=== PATIENT | female | born 1970 | race Caucasian/White ===

== ENCOUNTER 2018-06-29 20:17 | Inpatient (IN) | payer OTHER ==
[~2018-06-29] VITALS: Ht 160 cm; Wt 73.2 kg
[~2018-06-29 20:17] MED LIST: ASPI81TA4 PO; CALC500C PO; DEPA500T2 PO; MOTRIN PO; NO HOME MEDS; PERC5TAB12 PO; PRENTAB7 PO; REGL10TA6 PO; TRAZ1TAB36 PO
[2018-06-29] MEDS ORDERED: NS 1,000 ML IV ONE ×2 (20:45→22:15)
[2018-06-29] MEDS ORDERED: SUCRALFATE 1 GM TAB PO ONE (20:45)
[2018-06-29] MEDS ORDERED: ONDANSETRON 4MG/2ML VIAL (J2405) IV ONE (20:45)
[2018-06-29] MEDS: MORPHINE 2 MG/ML 1ML SYRINGE (J2270) IV PRN ×2 (20:57→22:05)
[2018-06-29 21:21] LABS: BASO # 0.1 10^3/uL (0.0-0.2); BASO % 0.5 % (0.0-1.0); EOS # 0.3 10^3/uL (0.0-0.50); EOS % 1.9 % (0.0-3.0); HEMATOCRIT 38.1 % (36.0-47.0); HEMOGLOBIN 12.5 g/dl (12.0-15.5); LYMPH # 2.4 10^3/uL (1.5-4.5); LYMPH % 15.4 % (24.0-44.0); MEAN CORPUSCULAR HEMOGLOBIN 29.5 pg (27.0-33.0); MEAN CORPUSCULAR HGB CONC 32.8 g/dl (32.0-36.5); MEAN CORPUSCULAR VOLUME 89.9 fl (80.0-96.0); MONO # 1.1 10^3/uL (0.0-0.8); MONO % 6.7 % (0.0-5.0); NEUTROPHILS # 11.8 10^3/uL (1.8-7.7); NEUTROPHILS % 75.1 % (36.0-66.0); PLATELET COUNT, AUTOMATED 285 10^3/uL (150-450); RED BLOOD COUNT 4.24 10^6/uL (4.00-5.40); WHITE BLOOD COUNT 15.7 10^3/uL (4.0-10.0)
[2018-06-29 21:34] LABS: HCG, SERUM QUALITATIVE NEGATIVE (NEGATIVE)
[2018-06-29 21:44] LABS: INR 1.01; PROTHROMBIN TIME 13.4 SECONDS (12.1-14.4)
[2018-06-29 21:45] LABS: PARTIAL THROMBOPLASTIN TIME 33.4 SECONDS (25.4-37.6)
[2018-06-29 21:57] LABS: ALBUMIN 3.4 GM/DL (3.2-5.2); ALT/SGPT 35 U/L (12-78); AMYLASE 2114 U/L (25-115); BILIRUBIN,DIRECT 0.2 MG/DL (0.0-0.2); BILIRUBIN,TOTAL 0.4 MG/DL (0.2-1.0); BLOOD UREA NITROGEN 8 MG/DL (7-18); CALCIUM LEVEL 8.1 MG/DL (8.5-10.1); CARBON DIOXIDE LEVEL 24 MEQ/L (21-32); CHLORIDE LEVEL 108 MEQ/L (98-107); CPK CREATINE PHOSPHOKINASE 125 U/L (26-192); CREATININE FOR GFR 0.59 MG/DL (0.55-1.30); GLOMERULAR FILTRATION RATE > 60.0 (>58); GLUCOSE, FASTING 90 MG/DL (70-100); LIPASE 24317 U/L (73-393); MB/CK RELATIVE INDEX 1.68 (< OR =4); POTASSIUM SERUM 3.6 MEQ/L (3.5-5.1); SODIUM LEVEL 141 MEQ/L (136-145); TOTAL PROTEIN 6.4 GM/DL (6.4-8.2); TROPONIN I < 0.02 NG/ML (< 0.10)
[2018-06-29] MEDS ORDERED: ISOVUE-370 76% 100ML VIAL (Q9967) As Ordered ONE (22:12)
[2018-06-29 22:22] LABS: ETHYL ALCOHOL (ETHANOL) < 0.003 % (0.000-0.010)
[2018-06-29] MEDS ORDERED: HYDROMORPHONE HCL 0.5 MG/ 0.5 ML SYRINGE (J1170 PER 1) IV PRN (22:45)
[2018-06-30] MEDS ORDERED: MORPHINE 4 MG/ML 1ML VIAL/SYRINGE (J2270) IV ONE ×2 (00:30→17:00)
[2018-06-30] MEDS ORDERED: ONDANSETRON 4MG/2ML VIAL (J2405) IV ONE (00:30)
--- NOTE | 2018-06-30 00:36 | REPVR ---
EXAM: CT Abdomen and Pelvis With Contrast EXAM DATE/TIME: 06/29/2018 11:53 PM CLINICAL HISTORY: 47 years old, female; Abdominal pain TECHNIQUE: Imaging protocol: Axial computed tomography images of the abdomen and pelvis with intravenous contrast. Coronal and sagittal reformatted images were created and reviewed. Radiation optimization: All CT scans at this facility use at least one of these dose optimization techniques: automated exposure control; mA and/or kV adjustment per patient size (includes targeted exams where dose is matched to clinical indication); or iterative reconstruction. Contrast material: ISO 370; Contrast volume: 100 ml; Contrast route: IV; COMPARISON: US ANATOMY OB>14 SINGLE/FIRST 10/15/2013 12:55 PM FINDINGS: Lungs: Linear stranding and groundglass at the lung bases, likely due to atelectasis and/or scarring. ABDOMEN: Liver: Unremarkable. Gallbladder and bile ducts: Cholelithiasis and probable gallbladder wall calcification. Mild common bile duct prominence to approximately 7 mm. Pancreas: Mild peripancreatic stranding and edema. No necrosis or hemorrhage. Spleen: Unremarkable. Adrenals: Unremarkable. Kidneys and ureters: Nonobstructing left renal calculus. No hydronephrosis. Stomach and bowel: No bowel wall thickening. No obstruction. No pneumatosis. Appendix: Normal. PELVIS: Bladder: Unremarkable. Reproductive: Unremarkable. ABDOMEN and PELVIS: Intraperitoneal space: No free fluid. No organized fluid collection. No free air. Bones/joints: No acute osseous abnormality. Mild degenerative changes. Soft tissues: Diastases of the rectus abdominis musculature. Vasculature: Mild atherosclerotic disease. No aneurysm or dissection. Lymph nodes: No pathologically enlarged lymph nodes. IMPRESSION: 1. Acute pancreatitis, as described above. Correlate with serum amylase and lipase levels. No drainable fluid collection. No necrosis or hemorrhage. 2. Additional findings, as above. Electronically signed by: Alexis Meléndez On 06/30/2018 00:35:36 AM
[2018-06-30] MEDS ORDERED: TUMS500C PO (01:03)
[2018-06-30] MEDS ORDERED: ACET-683 PO (01:03)
--- NOTE | 2018-06-30 01:43 | HPEPDOC ---
General Date of Admission Jun 30, 2018 at 00:44 Chief Complaint The patient is a 47-year-old female admitted with a reason for visit of Adominal Pain, Pancreatitis. Source: Patient History of Present Illness 47 y/o F c/o left upper quadrant/epigastric abdominal pain, nausea, vomiting, started at about 7.30 pm on 06/29/2018; no specific aggravating or relieving factor. IN ER pt was found with vitals of BP 143/70, HR 73, RR 18, TEmp 97.0, SpO2-96% on RA; CT abdomen was suggestive of acute pancreatitis. Pt was given iv morphine, iv zofran. Hospitalist service was consulted to admit the pt for further management. Pt was seen and examined at bedside in ER. Pt c/o epigastric area abdominal pain. Pt stated that 2 days ago she got drunk after having 5 beers. PMH- cholelithiasis, nicotine dependence PSxH- C Section Allergies- NKDA Home meds- reviewed, please refer to permanent medical records Home Medications Scheduled PRN Acetaminophen (Acetaminophen) 500 Mg Tablet, 500 MG PO Q4H PRN for PAIN, (Reported) Calcium Carbonate (Tums) 200 Mg Tab.chew, 500 MG PO DAILY PRN for INDIGESTION, (Reported) Allergies Coded Allergies: No Known Allergies (Unverified , 06/29/18) Family History reviewed, non contributory Social History * Smoker: current smoker Alcohol: occationally Drugs: denies A-FIB/CHADSVASC A-FIB History Current/History of A-Fib/PAF?: No Review of Systems Other systems 10 points review of system was performed and it was negative except as per HPI Physical Examination General Exam: Positive: Alert, Cooperative, No Acute Distress Eye Exam: Positive: PERRLA, Conjunctiva & lids normal ENT Exam: Positive: Atraumatic, Mucous membr. moist/pink Neck Exam: Positive: Supple Chest Exam: Positive: Clear to auscultation, Normal air movement Heart Exam: Positive: Rate Normal, Normal S1, Normal S2 Abdomen Exam: Positive: Normal bowel sounds, Soft Extremity Exam: Positive: Normal pulses Skin Exam: Positive: Nl turgor and temperature Neuro Exam: Positive: Normal Speech, Strength at 5/5 X4 ext, Cranial Nerves 3- 12 NL Psych Exam: Positive: Mental status NL Vital Signs Vital Signs Date Time Temp Pulse Resp B/P (MAP) Pulse Ox O2 Delivery O2 Flow Rate FiO2 06/30/18 01:16 18 06/30/18 01:01 68 111/57 (75) 99 Room Air 06/29/18 20:30 97.0 Laboratory Data Labs 24H Laboratory Tests 2 06/29/18 21:10: Immature Granulocyte % (Auto) 0.4, White Blood Count 15.7H, Red Blood Count 4.24, Hemoglobin 12.5, Hematocrit 38.1, Mean Corpuscular Volume 89.9, Mean Corpuscular Hemoglobin 29.5, Mean Corpuscular Hemoglobin Concent 32.8, Red Cell Distribution Width 13.2, Platelet Count 285, Neutrophils (%) (Auto) 75.1H, Lymphocytes (%) (Auto) 15.4L, Monocytes (%) (Auto) 6.7H, Eosinophils (%) (Auto) 1.9, Basophils (%) (Auto) 0.5, Neutrophils # (Auto) 11.8H, Lymphocytes # (Auto) 2.4, Monocytes # (Auto) 1.1H, Eosinophils # (Auto) 0.3, Basophils # (Auto) 0.1, Nucleated Red Blood Cells % (auto) 0.0, Prothrombin Time 13.4, Prothromb Time International Ratio 1.01, Activated Partial Thromboplast Time 33.4, Anion Gap 9, Glomerular Filtration Rate > 60.0, Lactic Acid Level 1.2, Calcium Level 8.1L, Aspartate Amino Transf (AST/SGOT) 74H, Alanine Aminotransferase (ALT/SGPT) 35, Alkaline Phosphatase 102, Total Bilirubin 0.4, Direct Bilirubin 0.2, Total Creatine Kinase 125, Creatine Kinase MB 2.0, Creatine Kinase MB Relative Index 1.68, Troponin I < 0.02, Total Protein 6.4, Albumin 3.4, Albumin/Globulin Ratio 1.13, Amylase Level 2114H, Lipase 15427H, Human Chorionic Gonadotropin, Qual NEGATIVE, Ethyl Alcohol Level < 0.003 06/30/18 00:50: Urine Color YELLOW, Urine Appearance CLEAR, Urine pH 6.0, Urine Specific Stephan 1.051, Urine Protein NEGATIVE, Urine Glucose (UA) NEGATIVE, Urine Ketones NEGATIVE, Urine Blood 2+H, Urine Nitrite NEGATIVE, Urine Bilirubin NEGATIVE, Urine Urobilinogen 2.0H, Urine Leukocyte Esterase NEGATIVE, Urine WBC (Auto) 0, Urine RBC (Auto) 0, Urine Hyaline Casts (Auto) 0, Urine Bacteria (Auto) NEGATIVE, Urine Squamous Epithelial Cells 1, Urine Sperm (Auto) CBC/BMP Laboratory Tests 06/29/18 21:10 Red Blood Count 4.24, Mean Corpuscular Volume 89.9, Mean Corpuscular Hemoglobin 29.5, Mean Corpuscular Hemoglobin Concent 32.8, Red Cell Distribution Width 13.2, Neutrophils (%) (Auto) 75.1 H, Lymphocytes (%) (Auto) 15.4 L, Monocytes (%) (Auto) 6.7 H, Eosinophils (%) (Auto) 1.9, Basophils (%) (Auto) 0.5, Neutrophils # (Auto) 11.8 H, Lymphocytes # (Auto) 2.4, Monocytes # (Auto) 1.1 H, Eosinophils # (Auto) 0.3, Basophils # (Auto) 0.1 Assessment/Plan 47 y/o F c/o abdominal pain, nausea vomiting found to have elevated Lipase/amylase level. CT was suggestive of acute pancreatitis. Labs and imaging studies reviewed. Problems (1) Pancreatitis Onset Date: ~ 06/2018 Status: Acute Problem Text: NPO, IVF NS, iv morphine prn, iv zofran prn will f/u MRCP to rule out gall stone pancreatitis. (2) Nicotine dependence Status: Chronic Problem Text: pt was counselled about smoking cessation Plan / VTE VTE Prophylaxis Ordered?: Yes NATHEN NUNEZ MD Jun 30, 2018 01:43
[2018-06-30] MEDS: NS 1,000 ML IV SCH ×3 (01:52→16:19)
[2018-06-30 01:55] VITALS: BP 125/62
--- NOTE | 2018-06-30 01:58 | REP ---
Clinical: Acute chest pain . Comparison: CT dated 04/25/2012 . Technique: PA and lateral. Findings: The mediastinum and cardiac silhouette are normal. The lung ferraro are clear and without acute consolidation, effusion, or pneumothorax. The skeletal structures are intact and normal. Impression: 1. No acute cardiopulmonary process. Electronically Signed by Josh Kirby MD 06/30/2018 01:50 A
[2018-06-30] MEDS: MORPHINE 4 MG/ML 1ML VIAL/SYRINGE (J2270) IV PRN ×3 (05:15→14:45)
[2018-06-30] MEDS: diphenhydrAMINE 25 MG CAP PO PRN ×2 (05:40→19:45)
[2018-06-30 06:51] LABS: HEMATOCRIT 35.3 % (36.0-47.0); HEMOGLOBIN 11.5 g/dl (12.0-15.5); MEAN CORPUSCULAR HEMOGLOBIN 29.8 pg (27.0-33.0); MEAN CORPUSCULAR HGB CONC 32.6 g/dl (32.0-36.5); MEAN CORPUSCULAR VOLUME 91.5 fl (80.0-96.0); PLATELET COUNT, AUTOMATED 254 10^3/uL (150-450); RED BLOOD COUNT 3.86 10^6/uL (4.00-5.40); WHITE BLOOD COUNT 7.9 10^3/uL (4.0-10.0)
[2018-06-30 07:23] LABS: ALT/SGPT 131 U/L (12-78); BILIRUBIN,TOTAL 0.4 MG/DL (0.2-1.0); BLOOD UREA NITROGEN 5 MG/DL (7-18); CALCIUM LEVEL 7.4 MG/DL (8.5-10.1); CARBON DIOXIDE LEVEL 24 MEQ/L (21-32); CHLORIDE LEVEL 113 MEQ/L (98-107); GLOMERULAR FILTRATION RATE > 60.0 (>58); GLUCOSE, FASTING 91 MG/DL (70-100); POTASSIUM SERUM 3.9 MEQ/L (3.5-5.1); SODIUM LEVEL 142 MEQ/L (136-145); TOTAL PROTEIN 5.9 GM/DL (6.4-8.2)
[2018-06-30 07:49] LABS: CHOLESTEROL LEVEL 135 MG/DL (<200); HDL CHOLESTEROL 34 MG/DL (>40); LDL CHOLESTEROL 76 MG/DL (<100); NON-HDL-C 101 MG/DL; TRIGLYCERIDES LEVEL 123 MG/DL (<150)
[2018-06-30 08:00] VITALS: BP 128/62
[2018-06-30] MEDS: HEPARIN SOD (PORCINE) 5000 UNITS/ML VIAL SC SCH ×2 (08:48→16:18)
[2018-06-30] MEDS ORDERED: LORazepam 2 MG/ML VIAL (J2060) IV STA (10:20)
--- NOTE | 2018-06-30 14:38 | ECGEPIP ---
Stationary ECG Study [facility] - ED Test Date: 2018-06-29 Pat Name: MICHELE HENRIQUEZ Department: Room: [place] [address] Gender: F National Sales Representative: mauro : 1970 Requested By: SABINO YADAV Order Number: [id number] Reading MD: Chris Mixon Measurements Intervals Dillon Rate: 72 P: 66 HI: 140 QRS: 45 QRSD: 98 T: 50 QT: 382 QTc: 418 Interpretive Statements SINUS RHYTHM Similar to tracing done 04-25-12 Electronically Signed On 06-30-2018 14:38:13 EDT by Chris Mixon
[2018-06-30] MEDS: ONDANSETRON 4MG/2ML VIAL (J2405) IV PRN ×2 (14:53→19:45)
--- NOTE | 2018-06-30 15:06 | REP ---
MRCP EXAM: MRCP exam is accomplished utilizing multiple heavily T2-weighted sequences in the axial and coronal planes. MIP reconstruction images are performed. Gallbladder is contracted with possible wall thickening. There are filling defects in the gallbladder consistent with gallstones. There is mild dilatation of central intrahepatic bile ducts. There is diltation of the common bile duct up to 10 mm. There is an oval calculus in the distal common bile duct 8 x 5 mm. Abrupt transition of distal common bile duct at the ampulla of Vater may represent a stricture or narrowing due to edema at the ampulla. The pancreatic duct is normal in caliber. There is diffuse periportal edema and mild fluid in the kalpesh hepatis. Mild peripancreatic edema suggests pancreatitis. IMPRESSION: Contracted gallbladder with possible wall thickening. There appear to be small gallstones in the gallbladder. Intrahepatic and extrahepatic biliary dilatation, common bile duct measures 10 mm maximally. There is a calculus in the common bile duct measuring 8 x 5 mm. Pancreatic duct is normal in caliber. Periportal edema and mild fluid seen, with diffuse edema surrounding the pancreas and in the pancreatic body compatible with pancreatitis. Electronically Signed by Chris Ng MD 06/30/2018 04:29 P
[2018-06-30 16:00] VITALS: BP 118/56
[2018-06-30 20:00] VITALS: BP 119/53
[2018-07-01] VITALS (8 sets, daily range): BP systolic 124–151; BP diastolic 7–78
[2018-07-01] MEDS: ONDANSETRON 4MG/2ML VIAL (J2405) IV PRN (00:06)
[2018-07-01] MEDS: HEPARIN SOD (PORCINE) 5000 UNITS/ML VIAL SC SCH ×4 (00:28→23:33)
[2018-07-01] MEDS: NS 1,000 ML IV SCH ×3 (00:31→11:30)
[2018-07-01 07:25] LABS: HEMATOCRIT 35.4 % (36.0-47.0); HEMOGLOBIN 11.4 g/dl (12.0-15.5); MEAN CORPUSCULAR HEMOGLOBIN 29.4 pg (27.0-33.0); MEAN CORPUSCULAR HGB CONC 32.2 g/dl (32.0-36.5); MEAN CORPUSCULAR VOLUME 91.2 fl (80.0-96.0); PLATELET COUNT, AUTOMATED 279 10^3/uL (150-450); RED BLOOD COUNT 3.88 10^6/uL (4.00-5.40)
[2018-07-01 08:01] LABS: ALBUMIN 2.5 GM/DL (3.2-5.2); ALT/SGPT 83 U/L (12-78); BILIRUBIN,DIRECT < 0.1 MG/DL (0.0-0.2); BILIRUBIN,TOTAL 0.3 MG/DL (0.2-1.0); BLOOD UREA NITROGEN 5 MG/DL (7-18); CALCIUM LEVEL 7.7 MG/DL (8.5-10.1); CARBON DIOXIDE LEVEL 23 MEQ/L (21-32); CHLORIDE LEVEL 114 MEQ/L (98-107); CREATININE FOR GFR 0.56 MG/DL (0.55-1.30); GLOMERULAR FILTRATION RATE > 60.0 (>58); GLUCOSE, FASTING 82 MG/DL (70-100); LIPASE 784 U/L (73-393); POTASSIUM SERUM 3.9 MEQ/L (3.5-5.1); SODIUM LEVEL 141 MEQ/L (136-145); TOTAL PROTEIN 5.6 GM/DL (6.4-8.2)
[2018-07-01] MEDS: MORPHINE 4 MG/ML 1ML VIAL/SYRINGE (J2270) IV PRN ×2 (08:55→13:12)
--- NOTE | 2018-07-01 15:53 | IPNPDOC ---
Text Note Date of Service The patient was seen on 07/01/18. NOTE Subjective: Patient seen and examined at bedside. No acute overnight events reported. Patient has no new medical complaints. States her abdominal pain has improved. Objective: General: NAD, lying comfortably in bed HEENT: NC/AT Lungs: CTA B/L Heart: +S1S2 Abd: soft, +BS A/P: 47 yo female for gallstone pancreatitis: #gallstone pancreatitis - plan for ERCP later today, possibly tomorrow morning - continue NPO/IVF - follow as per GI - assistance appreciated #nicotine addiction #DVT prophylaxis Dispo: pending ERCP VS,Fishbone, I+O VS, Fishbone, I+O Laboratory Tests 07/01/18 07:03 Red Blood Count 3.88 L, Mean Corpuscular Volume 91.2, Mean Corpuscular Hemoglobin 29.4, Mean Corpuscular Hemoglobin Concent 32.2, Red Cell Distribution Width 13.2, Calcium Level 7.7 L, Aspartate Amino Transf (AST/SGOT) 61 H, Alanine Aminotransferase (ALT/SGPT) 83 H, Alkaline Phosphatase 106, Total Bilirubin 0.3, Direct Bilirubin < 0.1, Total Protein 5.6 L, Albumin 2.5 L Vital Signs Date Time Temp Pulse Resp B/P (MAP) Pulse Ox O2 Delivery O2 Flow Rate FiO2 07/01/18 13:25 18 07/01/18 08:00 98.0 68 138/78 (98) 96 06/30/18 01:01 Room Air I&O- Last 24 Hours up to 6 AM 07/01/18 06:00 Intake Total 4365 ml Output Total 1250 ml Balance 3115 ml ANJANA FREEMAN MD Jul 01, 2018 15:53
[2018-07-01] MEDS ORDERED: LIDOCAINE 2% INJ 100 MG/5 ML SDV (FOR ANES.) As Ordered ONE (17:57)
[2018-07-01] MEDS ORDERED: ONDANSETRON 4MG/2ML VIAL (J2405) As Ordered ONE (17:57)
[2018-07-01] MEDS ORDERED: PROPOFOL 200 MG/20 ML VIAL As Ordered ONE (17:57)
[2018-07-01] MEDS ORDERED: dexameTHASONE 4 MG/ML 1ML VIAL (J1100) As Ordered ONE (17:57)
[2018-07-01] MEDS ORDERED: ROCURONIUM BROMIDE 50 MG/5 ML VIAL As Ordered ONE (17:57)
[2018-07-01] MEDS ORDERED: ISOVUE-300 61% 50ML VIAL (Q9967) As Ordered ONE (17:58)
[2018-07-01] MEDS ORDERED: fentaNYL 100 MCG/2 ML INJECTION (J3010) As Ordered ONE (18:00)
[2018-07-01] MEDS ORDERED: MIDAZOLAM INJ 2 MG/2 ML VIAL (J2250) As Ordered ONE (18:00)
[2018-07-01] MEDS ORDERED: SUGAMMADEX SODIUM 500 MG/5 ML VIAL (BRIDION) As Ordered ONE (18:38)
[2018-07-01] MEDS ORDERED: GLYCOPYRROLATE INJ 0.2 MG/ML 2 ML VIAL As Ordered ONE (18:44)
--- NOTE | 2018-07-01 19:13 | ROOR ---
Patient Name: Rosana Tolbert Procedure Date: 07/01/2018 6:08 PM Date of : 1970 Age: 47 Room: Main OR Gender: Female Note Status: Finalized Procedure: ERCP + Papillotomy + Balloon Sweep Indications: Bile duct stone(s), Abnormal MRCP, Elevated liver enzymes, Acute pancreatitis Providers: Khadar Lewis MD Referring MD: 2. Inpatient 2. Inpatient Requesting Provider: Medicines: General Anesthesia Complications: No immediate complications. Procedure: Pre-Anesthesia Assessment: - The heart rate, respiratory rate, oxygen saturations, blood pressure, adequacy of pulmonary ventilation, and response to care were monitored throughout the procedure. The Duodenoscope was introduced through the mouth, and advanced to the duodenum and used to inject contrast into the bile duct. The ERCP was accomplished without difficulty. The patient tolerated the procedure well. Findings: The upper GI tract was traversed under direct vision without detailed examination. The major papilla was normal. The bile duct was deeply cannulated with the short-nosed traction sphincterotome. Contrast was injected. I personally interpreted the bile duct images. Ductal flow of contrast was adequate. Image quality was adequate. Contrast extended to the entire biliary tree. Choledocholithiasis was found in a nondilated duct. Opacification of the lower third of the main bile duct was seen. The lower third of the main bile duct contained stone(s). A short 0.035 inch Soft Jagwire was passed into the biliary tree. Biliary sphincterotomy was made with a monofilament traction (standard) sphincterotome using ERBE electrocautery. There was no post-sphincterotomy bleeding. The biliary tree was swept with a 12 mm balloon starting at the bifurcation. Sludge was swept from the duct. All stones were removed. Impression: - Choledocholithiasis was found. Complete removal was accomplished by biliary sphincterotomy and balloon extraction. - A biliary sphincterotomy was performed. - The biliary tree was swept. - The examination was otherwise normal. Recommendation: - Avoid aspirin and nonsteroidal anti-inflammatory medicines for 2 weeks. - Return patient to hospital de for ongoing care. - Surgical consultation for consideration of cholecystectomy at appointment to be scheduled. - Watch for pancreatitis, bleeding, perforation, and cholangitis. - The findings and recommendations were discussed with the patient and their primary physician. Khadar Lewis MD Khadar Lewis MD 07/01/2018 7:13:14 PM Electronically signed by Khadar Lewis MD Number of Addenda: 0 Note Initiated On: 07/01/2018 6:08 PM Estimated Blood Loss: Estimated blood loss: none.
[2018-07-01] MEDS ORDERED: NORCO, ANEXSIA 5/325MG TABLET (HYDROcodone/ACETAMINOPHEN) PO PRN (19:45)
[2018-07-01] MEDS ORDERED: fentaNYL 100 MCG/2 ML INJECTION (J3010) IV PRN (19:45)
[2018-07-02 04:00] VITALS: BP 157/74
[2018-07-02 08:00] VITALS: BP 156/85
--- NOTE | 2018-07-02 08:41 | REP ---
C-ARM VIEWS DURING ERCP: Multiple C-ARM views are performed during ERCP exam. Contrast is injected into the common bile duct. There is mild dilatation of the common bile duct and central intrahepatic bile ducts. There is no filling defect seen in the common bile duct. 2 minutes and 6 seconds of fluoroscopy time was utilized. Electronically Signed by Chris Ng MD 07/04/2018 11:39 A
[2018-07-02 08:47] LABS: HEMATOCRIT 35.2 % (36.0-47.0); HEMOGLOBIN 11.8 g/dl (12.0-15.5); MEAN CORPUSCULAR HEMOGLOBIN 29.6 pg (27.0-33.0); MEAN CORPUSCULAR HGB CONC 33.5 g/dl (32.0-36.5); MEAN CORPUSCULAR VOLUME 88.4 fl (80.0-96.0); PLATELET COUNT, AUTOMATED 303 10^3/uL (150-450); RED BLOOD COUNT 3.98 10^6/uL (4.00-5.40); WHITE BLOOD COUNT 10.5 10^3/uL (4.0-10.0)
[2018-07-02] MEDS: HEPARIN SOD (PORCINE) 5000 UNITS/ML VIAL SC SCH ×3 (09:00→23:16)
[2018-07-02] MEDS: NS 1,000 ML IV SCH (09:04)
[2018-07-02 10:31] LABS: ALBUMIN 2.9 GM/DL (3.2-5.2); ALT/SGPT 61 U/L (12-78); BILIRUBIN,DIRECT 0.1 MG/DL (0.0-0.2); BILIRUBIN,TOTAL 0.3 MG/DL (0.2-1.0); BLOOD UREA NITROGEN 5 MG/DL (7-18); CALCIUM LEVEL 8.1 MG/DL (8.5-10.1); CARBON DIOXIDE LEVEL 23 MEQ/L (21-32); CHLORIDE LEVEL 112 MEQ/L (98-107); CREATININE FOR GFR 0.46 MG/DL (0.55-1.30); GLOMERULAR FILTRATION RATE > 60.0 (>58); GLUCOSE, FASTING 82 MG/DL (70-100); LIPASE 193 U/L (73-393); POTASSIUM SERUM 3.9 MEQ/L (3.5-5.1); SODIUM LEVEL 140 MEQ/L (136-145)
[2018-07-02 12:00] VITALS: BP 132/61
--- NOTE | 2018-07-02 14:46 | IPNPDOC ---
Text Note Date of Service The patient was seen on 07/02/18. NOTE Subjective: Patient seen and examined at bedside. Patient is s/p ERCP. States her abdominal pain has significantly improved. Objective: General: NAD, lying comfortably in bed HEENT: NC/AT Lungs: CTA B/L Heart: +S1S2 Abd: soft, +BS A/P: 47 yo female for gallstone pancreatitis: #gallstone pancreatitis - ss/p ERCP - d/c fluids - tolerating diet - monitor for pancreatitis - follow as per GI - assistance appreciated #nicotine addiction #DVT prophylaxis Dispo: anticipating discharge in 24 hours; outpatient choly VS,Fishbone, I+O VS, Fishbone, I+O Laboratory Tests 07/02/18 08:01 Red Blood Count 3.98 L, Mean Corpuscular Volume 88.4, Mean Corpuscular Hemoglobin 29.6, Mean Corpuscular Hemoglobin Concent 33.5, Red Cell Distribution Width 12.5 07/02/18 09:45 Calcium Level 8.1 L, Aspartate Amino Transf (AST/SGOT) 32, Alanine Aminotransferase (ALT/SGPT) 61, Alkaline Phosphatase 104, Total Bilirubin 0.3, Direct Bilirubin 0.1, Total Protein 6.0 L, Albumin 2.9 L Vital Signs Date Time Temp Pulse Resp B/P (MAP) Pulse Ox O2 Delivery O2 Flow Rate FiO2 07/02/18 12:00 99.9 61 18 132/61 (84) 96 07/02/18 04:00 2.0 06/30/18 01:01 Room Air I&O- Last 24 Hours up to 6 AM 07/02/18 06:00 Intake Total 2650 ml Output Total 2550 ml Balance 100 ml ANJANA FREEMAN MD July 02, 2018 14:46
[2018-07-02 16:00] VITALS: BP 141/67
[2018-07-02 20:00] VITALS: BP 119/57
--- NOTE | 2018-07-02 20:09 | CR ---
DATE OF CONSULTATION: 07/01/2018 This is a 47-year-old white female admitted to [facility] for evaluation of pain which apparently has shown pancreatitis. The patient has had an intermittent history of epigastric right upper quadrant abdominal pain associated with nausea and vomiting since 06/29/2018. The patient has been previously seen in the emergency room for similar bouts of pain dating back to 2013. The patient has no gallstones by ultrasound. The patient had been seen by surgery but for whatever reason never followed through. She presented with gallstone pancreatitis, her liver functions were elevated, ultrasound of the gallbladder showed gallstones and an MRCP was performed showing a 8 x 5 mm biliary tract stone. The patient on examination has some mild epigastric tenderness and associated nausea. MEDICATIONS AT HOME: Include: - as needed medications of Tylenol and Tums ALLERGIES: She has no known allergies. FAMILY HISTORY: Noncontributory. SOCIAL HISTORY: She is a current smoker. Alcohol occasionally. Patient denies drugs. Review of systems is noncontributory to this consultation. Physical examination reveals a well developed, well nourished, white female in no acute distress. Appears stated age. Chest is clear to auscultation. Cardiovascular: Regular rhythm. No murmurs or gallops. No physiological split S1, S2. Abdomen is soft, mild epigastric tenderness. No hepatosplenomegaly. Bowel sounds are positive. Laboratory studies on admission showed a white count of 15,700, hemoglobin and hematocrit of 12.5 and 38.1, platelets of 285,000. INR was 1.01. Liver functions on admission showed an alkaline phosphatase of 102, total bilirubin was 0.4, AST was 74, ALT was 35, amylase was 2114, lipase was 24,370. Patient is not . Subsequent liver functions janette to 135 from 131, bilirubin is noted to be normal. Liver functions on 07/01/2018 showed with labs returning almost to normal. Lipase dropped to 784. IMAGING STUDIES: The abdominal CT on 06/29/2018 findings showed pancreatitis. Otherwise essentially normal study. The patient also had an abdominal MRI which showed contracted gallbladder with possible thickening. There is some small gallstones in the gallbladder. ANALYSIS: Gallstone pancreatitis with choledocholithiasis. PLAN: Obtain ERCP with papillotomy and balloon sweep. Risks and complications have been discussed with the patient.
[2018-07-03 04:00] VITALS: BP 120/62
[2018-07-03] MEDS ORDERED: ACETAMINOPHEN 325 MG TAB PO PRN (04:45)
[2018-07-03 06:57] LABS: HEMATOCRIT 32.9 % (36.0-47.0); HEMOGLOBIN 11.2 g/dl (12.0-15.5); MEAN CORPUSCULAR HEMOGLOBIN 29.8 pg (27.0-33.0); MEAN CORPUSCULAR VOLUME 87.5 fl (80.0-96.0); PLATELET COUNT, AUTOMATED 260 10^3/uL (150-450); RED BLOOD COUNT 3.76 10^6/uL (4.00-5.40); WHITE BLOOD COUNT 8.5 10^3/uL (4.0-10.0)
[2018-07-03 07:24] LABS: ALBUMIN 2.7 GM/DL (3.2-5.2); ALT/SGPT 46 U/L (12-78); BILIRUBIN,DIRECT < 0.1 MG/DL (0.0-0.2); BILIRUBIN,TOTAL 0.3 MG/DL (0.2-1.0); BLOOD UREA NITROGEN 7 MG/DL (7-18); CALCIUM LEVEL 7.8 MG/DL (8.5-10.1); CARBON DIOXIDE LEVEL 25 MEQ/L (21-32); CHLORIDE LEVEL 113 MEQ/L (98-107); CREATININE FOR GFR 0.56 MG/DL (0.55-1.30); GLOMERULAR FILTRATION RATE > 60.0 (>58); GLUCOSE, FASTING 88 MG/DL (70-100); LIPASE 312 U/L (73-393); POTASSIUM SERUM 3.6 MEQ/L (3.5-5.1); SODIUM LEVEL 142 MEQ/L (136-145); TOTAL PROTEIN 5.7 GM/DL (6.4-8.2)
[2018-07-03 08:00] VITALS: BP 127/60
[2018-07-03] MEDS: HEPARIN SOD (PORCINE) 5000 UNITS/ML VIAL SC SCH (08:00)
--- NOTE | 2018-07-03 08:49 | NOCOX ---
DATE OF PROCEDURE: 07/02/2018 to 07/03/2018 Nocturnal oximetry was performed on room air. Baseline oxygen saturation was 94% with a heart rate of 74. There was minimal variability without significant hypoxia. Recording time was 7 hours and 5 minutes. Heart rate ranged from 44-87. Oxygen saturation recorded at 58%, however, that was artifact from disconnecting from the probe. Oxygen saturation remained above 90% for the majority of the testing. The longest continuous time with an oxygen saturation less than 88% was 12 seconds. The total time spent with an oxygen saturation of less than 90% was 38 seconds. IMPRESSION: No significant hypoxia. If there is concern for underlying obstructive sleep apnea, would recommend in-lab polysomnogram.
--- NOTE | 2018-07-03 16:20 | DS.PDOC ---
Discharge Summary General Date of Admission Jun 30, 2018 at 00:44 Date of Discharge 07/03/18 Specialist/Consultants Involve: Khadar Lewis Discharge Summary PROCEDURES PERFORMED DURING STAY: ERCP ADMITTING DIAGNOSES: 1. gallstone pancreatitis DISCHARGE DIAGNOSES: 1. choledocholithiasis 2. nicotine addiction COMPLICATIONS/CHIEF COMPLAINT: Abdominal Pain, Pancreatitis. HISTORY OF PRESENT ILLNESS: 47 y/o F c/o left upper quadrant/epigastric abdominal pain, nausea, vomiting, for one day, with no specific aggravating or relieving factor. CT abdomen was suggestive of acute pancreatitis. Pt was given iv morphine, iv zofran. Hospitalist service was consulted to admit the pt for further management. HOSPITAL COURSE: Patient admitted for further evaluation and treatment. Seen in consultation by GI, and underwent ERCP with balloon inflation and sweeping. Pancreatitis resolved. Importance of cholecystectomy was discussed at length with patient at bedside. She voiced understanding. She has in the past been non- compliant with surgical follow up. This was also discussed with the patient by GI. Patient was discharged home with outpatient follow up. DISCHARGE MEDICATIONS: Please see below. ALLERGIES: Please see below. PHYSICAL EXAMINATION ON DISCHARGE: VITAL SIGNS: Please see below. General: NAD, lying comfortably in bed HEENT: NC/AT Lungs: CTA B/L Heart: +S1S2 Abd: soft, +BS LABORATORY DATA: Please see below. ACTIVITY: [As tolerated]. DIET: As tolerated, low fat-low cholesterol DISPOSITION: Discharge home DISCHARGE INSTRUCTIONS: 1. Follow up with surgery in 1-5 days - as soon as possible for cholecystectomy 2. Follow up with PCP in 3-5 days. DISCHARGE CONDITION: [Stable]. TIME SPENT ON DISCHARGE: Greater than 30 minutes. Vital Signs/I&Os Vital Signs Date Time Temp Pulse Resp B/P (MAP) Pulse Ox O2 Delivery O2 Flow Rate FiO2 07/03/18 08:00 97.6 62 18 127/60 (82) 95 07/02/18 22:42 Room Air 07/02/18 04:00 2.0 I&O- Last 24 Hours up to 6 AM 07/03/18 06:00 Intake Total 2955 ml Output Total 1800 ml Balance 1155 ml Laboratory Data Labs 24H Laboratory Tests 2 07/03/18 06:40: Nucleated Red Blood Cells % (auto) 0.0, Anion Gap 4L, Glomerular Filtration Rate > 60.0, Blood Urea Nitrogen 7, Creatinine 0.56, Sodium Level 142, Potassium Level 3.6, Chloride Level 113H, Carbon Dioxide Level 25, Calcium Level 7.8L, Aspartate Amino Transf (AST/SGOT) 22, Alanine Aminotransferase (ALT/SGPT) 46, Alkaline Phosphatase 97, Total Bilirubin 0.3, Direct Bilirubin < 0.1, Total Protein 5.7L, Albumin 2.7L, Albumin/Globulin Ratio 0.90L, Lipase 312 CBC/BMP Laboratory Tests 07/03/18 06:40 Red Blood Count 3.76 L, Mean Corpuscular Volume 87.5, Mean Corpuscular Hemoglobin 29.8, Mean Corpuscular Hemoglobin Concent 34.0, Red Cell Distribution Width 12.8, Calcium Level 7.8 L, Aspartate Amino Transf (AST/SGOT) 22, Alanine Aminotransferase (ALT/SGPT) 46, Alkaline Phosphatase 97, Total Bilirubin 0.3, Direct Bilirubin < 0.1, Total Protein 5.7 L, Albumin 2.7 L Discharge Medications Scheduled PRN Acetaminophen (Acetaminophen) 500 Mg Tablet, 500 MG PO Q4H PRN for PAIN, (Reported) Calcium Carbonate (Tums) 200 Mg Tab.chew, 500 MG PO DAILY PRN for INDIGESTION, (Reported) Allergies Coded Allergies: No Known Allergies (Unverified , 06/29/18) ANJANA FREEMAN MD July 03, 2018 16:20
== END 2018-07-03 12:10 | disposition home or self-care (01) ==
LOC: M ED 20:17 → M ED INP 06-30 00:44 → M PED 06-30 01:45
PROVIDERS: ADMIT Internal Medicine; ATTEND Internal Medicine
PROC: 0FC98ZZ Extirpation of Matter from Common Bile Duct, Via Natural or Artificial Opening Endoscopic (ICD-10-PCS; principal; 2018-07-01 16:00)
DX: K80.50 Calculus of bile duct without cholangitis or cholecystitis without obstruction (principal); K85.10 Biliary acute pancreatitis without necrosis or infection; F17.200 Nicotine dependence, unspecified, uncomplicated; Z79.899 Other long term (current) drug therapy

== ENCOUNTER 2021-09-05 10:14 | Observation (INO) | payer OTHER ==
[~2021-09-05] VITALS: Ht 162.6 cm; Wt 97.6 kg
[~2021-09-05 10:14] MED LIST changes: +ACET-683 PO; -CALC500C PO; +RA A500C4 PO; +TUMS500C PO
[2021-09-05] MEDS ORDERED: NS 1,000 ML IV ONE (10:35)
[2021-09-05] MEDS ORDERED: ONDANSETRON 4MG 2ML VIAL IV ONE (10:45)
[2021-09-05] MEDS ORDERED: MORPHINE 4 MG/ML 1ML VIAL/SYRINGE IV PRN (10:45)
[2021-09-05 10:55] LABS: BASO # 0.1 10^3/uL (0.0-0.2); BASO % 0.8 % (0.0-1.0); EOS # 0.3 10^3/uL (0.0-0.5); EOS % 2.2 % (0.0-3.0); HEMATOCRIT 48.4 % (36.0-47.0); HEMOGLOBIN 15.9 g/dl (12.0-15.5); LYMPH # 1.9 10^3/uL (1.5-5.0); LYMPH % 13.5 % (24.0-44.0); MEAN CORPUSCULAR HEMOGLOBIN 29.3 pg (27.0-33.0); MEAN CORPUSCULAR HGB CONC 32.9 g/dl (32.0-36.5); MEAN CORPUSCULAR VOLUME 89.1 fl (80.0-96.0); MONO # 0.8 10^3/uL (0.0-0.8); MONO % 6.1 % (2.0-8.0); NEUTROPHILS # 10.6 10^3/uL (1.5-8.5); PLATELET COUNT, AUTOMATED 349 10^3/uL (150-450); RED BLOOD COUNT 5.43 10^6/uL (4.00-5.40); WHITE BLOOD COUNT 13.8 10^3/uL (4.0-10.0)
[2021-09-05 11:06] LABS: INR 0.88; PROTHROMBIN TIME 12.3 SECONDS (12.7-14.5)
[2021-09-05] MEDS ORDERED: ISOVUE-370 76% 100ML VIAL As Ordered ONE (11:17)
[2021-09-05 11:19] LABS: ALBUMIN 3.6 GM/DL (3.2-5.2); ALT/SGPT 17 U/L (12-78); AMYLASE 67 U/L (25-115); BILIRUBIN,DIRECT < 0.1 MG/DL (0.0-0.2); BILIRUBIN,TOTAL 0.3 MG/DL (0.2-1.0); BLOOD UREA NITROGEN 8 MG/DL (7-18); CALCIUM LEVEL 9.6 MG/DL (8.5-10.1); CARBON DIOXIDE LEVEL 27 MEQ/L (21-32); CHLORIDE LEVEL 105 MEQ/L (98-107); CK-MB VALUE MASS 1.1 NG/ML (<3.6); CPK CREATINE PHOSPHOKINASE 151 U/L (26-192); CREATININE FOR GFR 0.72 MG/DL (0.55-1.30); GLOMERULAR FILTRATION RATE > 60.0 (>51); GLUCOSE, FASTING 100 MG/DL (70-100); LIPASE 105 U/L (73-393); MB/CK RELATIVE INDEX 0.73 (< OR =4); POTASSIUM SERUM 4.1 MEQ/L (3.5-5.1); SODIUM LEVEL 137 MEQ/L (136-145); TOTAL PROTEIN 7.7 GM/DL (6.4-8.2)
[2021-09-05] MEDS ORDERED: PROMETHAZINE 25MG/ML 1ML VIAL IV ONE (11:50)
[2021-09-05] MEDS ORDERED: HYDROMORPHONE HCL 0.5 MG/ 0.5 ML SYRINGE (J1170 PER 1) IV ONE ×2 (11:50→14:00)
[2021-09-05] MEDS ORDERED: KETOROLAC 30 MG/ML 1ML VIAL IV ONE (11:50)
[2021-09-05 12:02] LABS: RSV AMPLIFICATION NEGATIVE (NEGATIVE)
[2021-09-05] MEDS ORDERED: PIPERACILLIN/TAZOBACTAM SOD 4.5 GM in D5W MINI-BAG PLUS 50 ML IV ONE (12:20)
[2021-09-05 12:29] LABS: CK-MB VALUE MASS 1.6 NG/ML (<3.6); MB/CK RELATIVE INDEX 2.13 (< OR =4)
[2021-09-05] MEDS ORDERED: GI COCKTAIL 50ML BTL(HYOSCYAMINE/MAALOX/LIDOCAINE VISCOUS)(1:3:1) PO ONE (12:40)
[2021-09-05] MEDS ORDERED: KETOROLAC 30 MG/ML 1ML VIAL IV PRN (14:10)
[2021-09-05] MEDS ORDERED: NORCO, ANEXSIA 5/325MG TABLET (HYDROcodone/ACETAMINOPHEN) PO PRN (14:10)
[2021-09-05] MEDS ORDERED: ONDANSETRON 4MG 2ML VIAL IV PRN (14:10)
[2021-09-05] MEDS ORDERED: MORPHINE 2 MG/ML 1ML VIAL IV PRN (14:10)
[2021-09-05] MEDS ORDERED: HOME MED LIST COMPLETE! XX SCH (15:10)
[2021-09-05] MEDS: NORCO, ANEXSIA 5/325MG TABLET (HYDROcodone/ACETAMINOPHEN) PO PRN ×2 (15:19→22:50)
[2021-09-05] MEDS: NS 1,000 ML IV SCH ×2 (16:41→22:48)
[2021-09-05 20:50] VITALS: BP 117/55
[2021-09-05] MEDS: PIPERACILLIN/TAZOBACTAM SOD 3.375 GM in D5W MINI-BAG PLUS 50 ML IV SCH (22:48)
[2021-09-05] MEDS: FAMOTIDINE 20 MG TAB PO SCH (22:48)
[2021-09-05] MEDS: SENOKOT S TAB PO SCH (22:49)
[2021-09-06] MEDS: PIPERACILLIN/TAZOBACTAM SOD 3.375 GM in D5W MINI-BAG PLUS 50 ML IV SCH ×2 (02:57→08:30)
[2021-09-06 05:56] LABS: HEMATOCRIT 38.9 % (36.0-47.0); MEAN CORPUSCULAR HEMOGLOBIN 29.8 pg (27.0-33.0); MEAN CORPUSCULAR HGB CONC 31.9 g/dl (32.0-36.5); MEAN CORPUSCULAR VOLUME 93.5 fl (80.0-96.0); PLATELET COUNT, AUTOMATED 257 10^3/uL (150-450); RED BLOOD COUNT 4.16 10^6/uL (4.00-5.40); WHITE BLOOD COUNT 9.1 10^3/uL (4.0-10.0)
[2021-09-06 06:00] VITALS: BP 110/50
[2021-09-06 06:10] LABS: HEMOGLOBIN 12.4 g/dl (12.0-15.5)
[2021-09-06 06:27] LABS: ALBUMIN 2.7 GM/DL (3.2-5.2); ALT/SGPT 13 U/L (12-78); BILIRUBIN,TOTAL 0.4 MG/DL (0.2-1.0); BLOOD UREA NITROGEN 7 MG/DL (7-18); CALCIUM LEVEL 8.5 MG/DL (8.5-10.1); CARBON DIOXIDE LEVEL 24 MEQ/L (21-32); CHLORIDE LEVEL 109 MEQ/L (98-107); GLOMERULAR FILTRATION RATE > 60.0 (>51); GLUCOSE, FASTING 87 MG/DL (70-100); SODIUM LEVEL 140 MEQ/L (136-145); TOTAL PROTEIN 5.7 GM/DL (6.4-8.2)
[2021-09-06] MEDS ORDERED: CARA1TAB6 PO (07:39)
[2021-09-06] MEDS ORDERED: HYDR-3715 PO (07:39)
[2021-09-06] MEDS ORDERED: FAMO20TA PO (07:39)
[2021-09-06] MEDS: NS 1,000 ML IV SCH (08:30)
[2021-09-06] MEDS: SENOKOT S TAB PO SCH (08:31)
[2021-09-06] MEDS: NORCO, ANEXSIA 5/325MG TABLET (HYDROcodone/ACETAMINOPHEN) PO PRN (08:33)
[2021-09-06] MEDS: FAMOTIDINE 20 MG TAB PO SCH (09:04)
[2021-09-06 10:00] VITALS: BP 112/57
== END 2021-09-06 10:40 | disposition home or self-care (01) ==
LOC: M ED 10:14 → M ED INP 14:09 → M MS5PR 20:50
PROVIDERS: ADMIT Surgery; ATTEND Surgery
DX: K29.90 Gastroduodenitis, unspecified, without bleeding (principal); R10.13 Epigastric pain; R10.12 Left upper quadrant pain; K83.8 Other specified diseases of biliary tract; K80.12 Calculus of gallbladder with acute and chronic cholecystitis without obstruction; Z87.19 Personal history of other diseases of the digestive system; F41.9 Anxiety disorder, unspecified; F17.200 Nicotine dependence, unspecified, uncomplicated
CPT/HCPCS: 36415; 71045; 71275; 74177; 76705; 80047; 80048; 80053; 80076; 82150; 82550; 82553; 83605; 83690; 85025; 85027; 85610; 85730; 87040; 87631; 93005; 93041; 94760; 96365; 96366; 96375; 96376; 99285; J1170; J1885; J2270; J2405; J2543; J2550; Q9967

== ENCOUNTER 2021-09-07 18:33 | Emergency (ER) | payer OTHER ==
[~2021-09-07] VITALS: Ht 157.5 cm; Wt 74.1 kg
[~2021-09-07 18:33] MED LIST changes: +CARA1TAB6 PO; +FAMO20TA PO; +HYDR-3715 PO
[2021-09-07 18:35] VITALS: BP 138/64
[2021-09-10] MEDS ORDERED: OXYC1TAB23 PO (15:06)
== END 2021-09-07 19:36 | disposition left against medical advice (07) ==
LOC: M ED 18:33
DX: Z53.29 Procedure and treatment not carried out because of patient's decision for other reasons (principal)

== ENCOUNTER 2023-12-27 08:30 | Observation (INO) | payer OTHER ==
[~2023-12-27] VITALS: Ht 157.5 cm; Wt 74.5 kg
[~2023-12-27 08:30] MED LIST changes: +OXYC1TAB23 PO
[2023-12-27] MEDS ORDERED: ISOVUE-370 76% 100ML VIAL As Ordered ONE (08:51)
[2023-12-27] MEDS ORDERED: ASPI81CH33 PO (08:56)
[2023-12-27] MEDS ORDERED: [UNRECOGNIZED DRUG - OTHER] XX SCH (09:00)
[2023-12-27] MEDS: AUGMENTIN 875 MG TAB PO SCH (09:00)
[2023-12-27 09:13] LABS: BASO # 0.1 10^3/uL (0.0-0.2); BASO % 1.2 % (0.0-1.0); EOS # 0.3 10^3/uL (0.0-0.5); EOS % 3.1 % (0.0-3.0); HEMATOCRIT 42.1 % (36.0-47.0); HEMOGLOBIN 14.2 g/dl (12.0-15.5); LYMPH # 2.6 10^3/uL (1.5-5.0); LYMPH % 30.3 % (24.0-44.0); MEAN CORPUSCULAR HEMOGLOBIN 30.1 pg (27.0-33.0); MEAN CORPUSCULAR HGB CONC 33.7 g/dl (32.0-36.5); MEAN CORPUSCULAR VOLUME 89.2 fl (80.0-96.0); MONO # 0.9 10^3/uL (0.0-0.8); MONO % 10.5 % (2.0-8.0); NEUTROPHILS # 4.6 10^3/uL (1.5-8.5); NEUTROPHILS % 54.5 % (36.0-66.0); PLATELET COUNT, AUTOMATED 308 10^3/uL (150-450); RED BLOOD COUNT 4.72 10^6/uL (4.00-5.40); WHITE BLOOD COUNT 8.5 10^3/uL (4.0-10.0)
[2023-12-27 09:25] LABS: INR 0.9; PARTIAL THROMBOPLASTIN TIME 28.4 SECONDS (24.8-34.2); PROTHROMBIN TIME 12.5 SECONDS (12.5-14.5)
[2023-12-27 09:43] LABS: ALBUMIN 3.4 G/DL (3.2-5.2); ALKALINE PHOSPHATASE 114 U/L (35-104); ALT/SGPT 11 U/L (7.0-40); AST/SGOT < 8 U/L (<34); BILIRUBIN,DIRECT < 0.1 MG/DL (<0.4); BILIRUBIN,TOTAL 0.2 MG/DL (0.3-1.2); BLOOD UREA NITROGEN 14 MG/DL (9-23); CALCIUM LEVEL 9.6 MG/DL (8.5-10.1); CARBON DIOXIDE LEVEL 23 MMOL/L (20-31); CHLORIDE LEVEL 111 MMOL/L (98-107); CREATININE FOR GFR 0.61 MG/DL (0.55-1.30); GLOMERULAR FILTRATION RATE > 60.0 (>51); GLUCOSE, FASTING 88 MG/DL (60-100); POTASSIUM SERUM 4.5 MMOL/L (3.5-5.1); SODIUM LEVEL 140 MMOL/L (136-145); TOTAL PROTEIN 6.9 G/DL (5.7-8.2)
[2023-12-27] MEDS ORDERED: HOME MED LIST COMPLETE! XX SCH (10:20)
[2023-12-27] MEDS ORDERED: ASPI81TA26 PO (10:20)
[2023-12-27] MEDS: PANTOPRAZOLE 40MG TAB (PROTONIX) PO ONE (12:00)
[2023-12-27] MEDS: LORazepam 0.5 MG TAB PO ONE (12:10)
[2023-12-27 12:45] VITALS: BP 110/57; TEMP 98.1; O2SAT 95
[2023-12-27] MEDS: HEPARIN SOD (PORCINE) 5000UNITS/ML 1ML VIAL/SYRINGE SQ SCH (12:57)
[2023-12-27 13:21] LABS: BASO # 0.1 10^3/uL (0.0-0.2); BASO % 1.2 % (0.0-1.0); EOS # 0.2 10^3/uL (0.0-0.5); EOS % 2.5 % (0.0-3.0); HEMATOCRIT 43.4 % (36.0-47.0); HEMOGLOBIN 14.4 g/dl (12.0-15.5); LYMPH # 2.5 10^3/uL (1.5-5.0); LYMPH % 32.6 % (24.0-44.0); MEAN CORPUSCULAR HEMOGLOBIN 30.2 pg (27.0-33.0); MEAN CORPUSCULAR HGB CONC 33.2 g/dl (32.0-36.5); MONO # 0.7 10^3/uL (0.0-0.8); MONO % 8.6 % (2.0-8.0); NEUTROPHILS # 4.2 10^3/uL (1.5-8.5); NEUTROPHILS % 54.8 % (36.0-66.0); PLATELET COUNT, AUTOMATED 300 10^3/uL (150-450); RED BLOOD COUNT 4.77 10^6/uL (4.00-5.40); WHITE BLOOD COUNT 7.6 10^3/uL (4.0-10.0)
[2023-12-27 13:26] LABS: ERYTHROCYTE SEDIMENTATION RATE 25 mm/hr (0-30)
[2023-12-27 13:40] LABS: INR 0.93; PARTIAL THROMBOPLASTIN TIME 28.6 SECONDS (24.8-34.2); PROTHROMBIN TIME 12.8 SECONDS (12.5-14.5)
[2023-12-27] MEDS: LORazepam 2 MG/ML 1ML VIAL IV STA (13:43)
[2023-12-27 13:44] LABS: CK-MB VALUE MASS < 1.0 NG/ML (<3.6)
[2023-12-27 13:45] LABS: C REACTIVE PROTEIN QUANTITATIV < 0.40 MG/DL (<1.0)
[2023-12-27 13:48] LABS: ALBUMIN 3.5 G/DL (3.2-5.2); ALKALINE PHOSPHATASE 113 U/L (35-104); ALT/SGPT 12 U/L (7.0-40); AST/SGOT 11 U/L (<34); BILIRUBIN,DIRECT < 0.1 MG/DL (<0.4); BILIRUBIN,TOTAL 0.2 MG/DL (0.3-1.2); BLOOD UREA NITROGEN 11 MG/DL (9-23); CALCIUM LEVEL 9.8 MG/DL (8.5-10.1); CARBON DIOXIDE LEVEL 28 MMOL/L (20-31); CHLORIDE LEVEL 110 MMOL/L (98-107); CHOLESTEROL LEVEL 184 MG/DL (<200); CHOLESTEROL RISK RATIO 4.45 (<5); CREATININE FOR GFR 0.62 MG/DL (0.55-1.30); GLOMERULAR FILTRATION RATE > 60.0 (>51); GLUCOSE, FASTING 89 MG/DL (60-100); HDL CHOLESTEROL 41.3 MG/DL (>40); LDL CHOLESTEROL 121.1 MG/DL (<100); NON-HDL-C 142.7 MG/DL; POTASSIUM SERUM 4.5 MMOL/L (3.5-5.1); SODIUM LEVEL 140 MMOL/L (136-145); THYROID STIMULATING HORMONE 0.618 uIU/ML (0.55-4.78); TRIGLYCERIDES LEVEL 108 MG/DL (<150)
[2023-12-27 13:53] LABS: CPK CREATINE PHOSPHOKINASE 70 U/L (34-145); MB/CK RELATIVE INDEX 1.42 (< OR =4)
[2023-12-27] MEDS: MUPIROCIN 2% OINT 22 GM TUBE TOP SCH (15:43)
[2023-12-27 16:00] VITALS: BP 121/68; TEMP 97.8; O2SAT 95
[2023-12-27 19:30] VITALS: BP 118/60; TEMP 98.4
[2023-12-27] MEDS: ATORVASTATIN 20 MG TAB PO SCH (21:32)
[2023-12-27 23:55] VITALS: BP 98/52; TEMP 97.3; O2SAT 98
[2023-12-28 04:25] VITALS: BP 102/58; TEMP 97.2; O2SAT 99
[2023-12-28 07:57] VITALS: BP 133/74; TEMP 97.3; O2SAT 94
[2023-12-28] MEDS: ASPIRIN 81MG CHEW TABLET PO SCH (10:34)
[2023-12-28] MEDS ORDERED: AMOX875T2 PO (10:53)
== END 2023-12-28 10:36 | disposition left against medical advice (07) ==
LOC: M ED 08:30 → M ED INP 08:31 → M PCU 12:43
PROVIDERS: ADMIT Hospitalist; ATTEND Hospitalist
DX: G45.9 Transient cerebral ischemic attack, unspecified (principal); L02.412 Cutaneous abscess of left axilla; R55 Syncope and collapse; R20.2 Paresthesia of skin; R53.1 Weakness; H53.8 Other visual disturbances; F41.9 Anxiety disorder, unspecified; K81.1 Chronic cholecystitis; F17.210 Nicotine dependence, cigarettes, uncomplicated; Z87.19 Personal history of other diseases of the digestive system; K57.92 Diverticulitis of intestine, part unspecified, without perforation or abscess without bleeding; R13.10 Dysphagia, unspecified; Z80.3 Family history of malignant neoplasm of breast; Z79.82 Long term (current) use of aspirin
CPT/HCPCS: 36415; 70450; 70496; 70498; 70544; 70551; 71045; 80047; 80048; 80061; 80076; 82550; 82553; 84439; 84443; 84484; 85025; 85610; 85652; 85730; 86140; 87641; 93005; 93041; 93306; 94760; 96372; 96374; 99285; J2060; Q9967